=== PATIENT | male | born 1985 | race Caucasian/White ===

== ENCOUNTER 2024-11-12 09:21 | Emergency (ER) | payer SELFPAY ==
[2024-11-12 10:09] LABS: Influenza A Ag Negative; Influenza B Ag Negative; SARS-CoV-2 Antigen Rapid Res Negative (Negative)
--- NOTE | 2024-11-12 11:21 | RAD REPORT ---
EXAM: Chest Pa And Lat (2 Views) HISTORY: 39 years Male CHEST PAIN COMPARISON: None. FINDINGS: LUNGS/PLEURA: The lungs are clear. No pleural effusions or pneumothorax. No pulmonary edema. CARDIAC/MEDIASTINUM: The cardiac silhouette is within normal limits. UPPER ABDOMEN: No significant abnormality. BONES: No acute abnormality. LINES/TUBES/OTHER: N/A IMPRESSION: No evidence of acute cardiopulmonary disease.
--- NOTE | 2024-11-12 11:37 | EDPHYS ---
Physician Documentation [facility] Name: Gil Glynn Age: 39 yrs Sex: Male : 1985 Arrival Date: 11/12/2024 Time: 09:21 Bed 7 Private MD: ED Physician Barrington Rodriguez HPI: 11/12 09:44 This 39 yrs old Male presents to ER via Ambulatory with complaints of Flu Symptoms. ms3 09:44 39-year-old male with no past medical history presents to the emergency department for ms3 throat pain that has been ongoing for 2 days. Patient denies cough. Patient endorses diarrhea and left chest tenderness. Patient states his discomfort is a 6/10. He denies any alleviating or inciting factors.. Historical: - Allergies: 09:35 No Known Allergies; ld1 - Home Meds: 09:35 None [Active]; ld1 - PMHx: 09:35 None; ld1 - PSHx: 09:35 None; ld1 - Immunization history:: Adult Immunizations up to date. - Infectious Disease History:: Denies. - Social history:: Smoking status: Patient denies any tobacco usage or history of. ROS: 09:44 Constitutional: Negative for fever, and chills. Cardiovascular: Negative for chest ms3 pain, and palpitations. 09:44 MS/Extremity: Negative for injury and deformity, Skin: Negative for injury, rash, and discoloration, 09:44 ENT: Positive for sore throat, Exam: 09:44 Constitutional: This is a well developed, well nourished patient who is awake, alert, ms3 and in no acute distress. Cardiovascular: Regular rate and rhythm with a normal S1 and S2. No gallops, murmurs, or rubs. Normal PMI, no JVD. No pulse deficits. Respiratory: Lungs have equal breath sounds bilaterally, clear to auscultation and percussion. No rales, rhonchi or wheezes noted. No increased work of breathing, no retractions or nasal flaring. Abdomen/GI: Soft, non-tender, with normal bowel sounds. No distension or tympany. No guarding or rebound. No evidence of tenderness throughout. Skin: Warm, dry with normal turgor. Normal color with no rashes, no lesions, and no evidence of cellulitis. 09:44 Chest/axilla: Inspection: normal, Palpation: tenderness, that is moderate, of the Left chest tender to palpation, Vital Signs: 09:34 BP 146 / 97; Pulse 90; Resp 18; Temp 97.8(O); Pulse Ox 98% on R/A; Weight 81.65 kg; ld1 Height 5 ft. 10 in. ; Pain 0/10; 11:07 BP 136 / 84; Pulse 84; Resp 18; Pulse Ox 100% on R/A; ld1 11:46 BP 129 / 76; Pulse 81; Resp 18; Pulse Ox 99% on R/A; ld1 09:34 Body Mass Index 25.83 (81.65 kg, 177.8 cm) ld1 09:34 Pain Scale: Adult ld1 MDM: 09:43 Medical Screening Exam initiated ms3 09:44 Differential Diagnosis: Bronchitis Influenza Upper Respiratory Infection Pharyngitis ms3 Pneumonia. 11:36 Data reviewed: vital signs, nurses notes, lab test result(s), radiologic studies, and ms3 as a result, I will discharge patient. I considered the following discharge prescriptions or medication management in the emergency department. Counseling: I had a detailed discussion with the patient and/or guardian regarding the historical points, exam findings, and any diagnostic results supporting the discharge/admit diagnosis, lab results, radiology results, the need for outpatient follow up, to return to the emergency department if symptoms worsen or persist or if there are any questions or concerns that arise at home. Special discussion: I discussed with the patient/guardian in detail that at this point there is no indication for admission to the hospital. It is understood, however, that if the symptoms persist or worsen the patient needs to return immediately for re-evaluation. ED course: Discussed negative flu, COVID, strep, chest x-ray with patient. Patient is alert and orient x 4, no apparent distress, nontoxic-appearing, speaking full sentences. Patient to follow-up with Dr. Kinney in 2 to 3 days. Patient understands and agrees with plan. All questions were answered. Return precautions discussed include worsening symptoms, or any other concerns.. 11/12 09:33 Order name: COVID-19 Ag + Flu A+B Ag; Complete Time: 10:20 ld1 11/12 09:34 Order name: Group A Streptococcus Rapid; Complete Time: 10:20 ld1 11/12 10:01 Order name: Throat Culture EDMS 11/12 09:44 Order name: Chest Pa And Lat (2 Views) XRAY; Complete Time: 11:34 ms3 Administered Medications: No medications were administered Disposition Summary: 11/12/24 11:36 Discharge Ordered Notes: Location: Home ms3 Condition: Stable ms3 Diagnosis - Acute upper respiratory infection, unspecified ms3 Followup: ms3 - With: Vince Kinney DO - When: 2 - 3 days - Reason: Recheck today's complaints Discharge Instructions: - Discharge Summary Sheet ms3 - Upper Respiratory Infection, Adult ms3 Forms: - Medication Reconciliation Form ms3 - Antibiotic Education ms3 - Prescription Opioid Use ms3 - Patient Portal Instructions ms3 - Leadership Thank You Letter ms3 Signatures: Dispatcher [employer] EDBarrington Martinez, DO ms3 Gracia Rodriguez, RN RN ld1
--- NOTE | 2024-11-12 11:37 | ER ---
Nurse's Notes [facility] Name: Gil Glynn Age: 39 yrs Sex: Male : 1985 Arrival Date: 11/12/2024 Time: 09:21 Bed 7 Private MD: Diagnosis: Acute upper respiratory infection, unspecified Presentation: 11/12 09:34 Chief complaint: Patient states: Sore throat X 2 days. C/O left lung pain. Coronavirus ld1 screen: At this time, the client does not indicate any symptoms associated with coronavirus-19. Ebola Screen: No symptoms or risks identified at this time. Initial Sepsis Screen: Does the patient meet any 2 criteria? No. Patient's initial sepsis screen is negative. Does the patient have a suspected source of infection? No. Patient's initial sepsis screen is negative. Risk Assessment: Do you want to hurt yourself or someone else? Patient reports no desire to harm self or others. Onset of symptoms was November 12, 2024. 09:34 Method Of Arrival: Ambulatory ld1 09:34 Acuity: GISELLE 4 ld1 Triage Assessment: 09:35 General: Appears in no apparent distress. comfortable, Behavior is calm, cooperative, ld1 appropriate for age. Pain: Denies pain. EENT: Reports pain in uvula, left aspect of posterior pharynx and right aspect of posterior pharynx. Neuro: Level of Consciousness is awake, alert, obeys commands, Oriented to person, place, time, situation. Cardiovascular: Capillary refill < 3 seconds Patient's skin is warm and dry. Respiratory: Airway is patent Respiratory effort is even, unlabored. GI: Abdomen is flat, non-distended. : No signs and/or symptoms were reported regarding the genitourinary system. Derm: No signs and/or symptoms reported regarding the dermatologic system. Musculoskeletal: No signs and/or symptoms reported regarding the musculoskeletal system. Historical: - Allergies: :35 No Known Allergies; ld1 - Home Meds: 09:35 None [Active]; ld1 - PMHx: :35 None; ld1 - PSHx: 09:35 None; ld1 - Immunization history:: Adult Immunizations up to date. - Infectious Disease History:: Denies. - Social history:: Smoking status: Patient denies any tobacco usage or history of. Screenin:36 [facility] ED Fall Risk Assessment (Adult) History of falling in the last 3 months, ld1 including since admission No falls in past 3 months (0 pts) Confusion or Disorientation No (0 pts) Intoxicated or Sedated No (0 pts) Impaired Gait No (0 pts) Mobility Assist Device Used No (0 pt) Altered Elimination No (0 pt) Score/Fall Risk Level 0 - 2 = Low Risk Oriented to surroundings, Hourly rounding (assess needs \T\ fall precautionary measures) done. Abuse screen: Denies threats or abuse. Denies injuries from another. Nutritional screening: No deficits noted. Tuberculosis screening: No symptoms or risk factors identified. Assessment: 09:36 Reassessment: See triage assessmnet. ld1 11:07 Reassessment: Patient appears in no apparent distress at this time. No changes from ld1 previously documented assessment. Patient and/or family updated on plan of care and expected duration. Pain level reassessed. Patient is alert, oriented x 3, equal unlabored respirations, skin warm/dry/pink. 11:46 Reassessment: Patient appears in no apparent distress at this time. No changes from ld1 previously documented assessment. Patient and/or family updated on plan of care and expected duration. Pain level reassessed. Patient is alert, oriented x 3, equal unlabored respirations, skin warm/dry/pink. Vital Signs: 09:34 BP 146 / 97; Pulse 90; Resp 18; Temp 97.8(O); Pulse Ox 98% on R/A; Weight 81.65 kg; ld1 Height 5 ft. 10 in. ; Pain 0/10; 11:07 BP 136 / 84; Pulse 84; Resp 18; Pulse Ox 100% on R/A; ld1 11:46 BP 129 / 76; Pulse 81; Resp 18; Pulse Ox 99% on R/A; ld1 09:34 Body Mass Index 25.83 (81.65 kg, 177.8 cm) ld1 09:34 Pain Scale: Adult ld1 ED Course: 09:25 Patient arrived in ED. im 09:28 Gracia Rodriguez, BEE is Primary Nurse. ld1 09:29 Barrington Rodriguez DO is Attending Physician. ms3 09:35 Triage completed. ld1 09:35 Arm band placed on right wrist. ld1 09:36 Patient has correct armband on for positive identification. Placed in gown. Bed in low ld1 position. Call light in reach. Side rails up X2. monitoring manager on. Pulse ox on. NIBP on. Door closed. Noise minimized. Warm blanket given. 09:36 No provider procedures requiring assistance completed. ld1 10:12 Chest Pa And Lat (2 Views) XRAY In Process Unspecified. EDMS 11:36 Vince Kinney DO is Referral Physician. ms3 11:46 Patient did not have IV access during this emergency room visit. ld1 Administered Medications: No medications were administered Medication: 09:36 VIS not applicable for this client. ld1 Outcome: 11:36 Discharge ordered by . ms3 11:46 Discharged to home ambulatory, ld1 11:46 Condition: stable 11:46 Discharge instructions given to patient, Instructed on discharge instructions, follow up and referral plans. Demonstrated understanding of instructions, follow-up care, 11:46 Patient left the ED. ld1 Signatures: Dispatcher [employer] EDMA Barrington Rodriguez DO DO ms3 Gracia Rodriguez, RN RN ld1 Mame Machado
[2024-11-12 12:03] VITALS: TEMP 97.8
[2024-11-12 12:07] VITALS: BP 129/76; O2SAT 99
== END 2024-11-12 11:46 | disposition home or self-care (01) ==
LOC: ER 09:21
DX: J06.9 Acute upper respiratory infection, unspecified (principal); Z11.52 Encounter for screening for COVID-19
CPT/HCPCS: 36415; 71046; 87070; 87428; 99284